=== PATIENT | female | born 1970 | race Caucasian/White ===

== ENCOUNTER 2019-12-14 10:44 | Emergency (ER) | payer OTHER, SELFPAY ==
--- NOTE | ~2019-12-14 | XR_ITS ---
EXAMINATION: XR lumbar spine min 4V EXAM DATE: 12/14/2019 11:30 INDICATION: No known recent injury provided at this time. Pain of the low back. Symptoms 3 weeks. TECHNIQUE: Lumber spine frontal, lateral, bilateral oblique projections. Coned down frontal and lat eral L5-S1 lumbar projections for interpretation. There is no prior study for comparison. FINDINGS: The vertebral bodies are aligned in the AP dimension. Vertebral body and disc heights are w ell-maintained. Mild lumbar facet arthropathy. No endplate erosive change. Sacrum, sacroiliac joints, sacral arcuate lines are intact. Paraspinal soft tissue is unremarkable. There is IUD projecting ove r the central aspect of the pelvis. IMPRESSION: Mild lumbar facet arthropathy. No acute findings. Reviewed, dictated and finalized at location B.
[2019-12-14 11:06] VITALS: BP 138/85; PULSE 96; RESP 18; TEMP 36.8; O2SAT 100
[2019-12-14] MEDS: KETOROLAC (*BKC) 60 MG/2 ML VIAL IM (11:18)
[2019-12-14 11:29] LABS: Add Urine Microscopic? YES; Appearance Urine Clear (Clear); Bilirubin Urine Negative (Negative); Blood Urine 1+ (Negative); Color Urine Colorless (Yellow); Glucose Urine UA Negative (Negative); Ketones Urine Negative (Negative); Leukocyte Esterase Ur Negative LEU/UL (Negative); Nitrate Urine Negative (Negative); Protein Urine Negative (Negative); Specific Grav Ur 1.006 (1.001-1.035); Squamous Epithelial Cell Urine Occasional /hpf (Few); Urobilinogen Urine Negative mg/dL (<2.0); WBC Urine 0-3 /hpf
--- NOTE | 2019-12-14 11:39 | ED.ABDPAIN ---
HPI - Abdominal Pain General Chief Complaint: Back Pain/Injury Stated Complaint: Back pain Time Seen by Provider: 12/14/19 10:48 Source: patient Mode of arrival: ambulatory Limitations: no limitations History of Present Illness HPI narrative: Patient is a 49-year-old female who presents with 3 weeks duration of low back pain noting that she had done some [employer] and then woke the next day with back pain noting aching pain worse with movement and activity that radiates into the bilateral buttocks patient denies other injury or trauma or similar occurrence went to an urgent care had taken a Medrol Dosepak and was taking muscle relaxers with minimal improvement Related Data Allergies Allergy/AdvReac Type Severity Reaction Status Date / Time levofloxacin Allergy Unknown Unknown Verified 12/14/19 11:12 Review of Systems Review of Systems: All systems reviewed & are unremarkable except as noted in HPI and below PMFSH Family History Family History (Updated 07/07/16 @ 10:20 by DOCTOR UNKNOWN) Mother Family history of mental disorder Hypertension Grandparent Hypertension Cerebrovascular accident Social History Social History Smoking status: Never smoker Alcohol intake: never Gender identity (if verbalized by the patient): Female Exam Narrative: Exam Narrative: GENERAL: Well-appearing, well-nourished, and in no acute distress. HEAD: Normocephalic, atraumatic. EYES: PERRLA and EOMI. ENT: Nares clear, no rhinorrhea or epistaxis. Mucous membranes moist. CHEST: Clear to auscultation. No respiratory distress. No wheezes rales or rhonchi HEART: Regular rate and rhythm. No murmur heard. EXTREMITIES: Normal range of motion. No edema. Midline lumbar tenderness no deformities noted SKIN: Warm, dry, no rash. NEURO: No focal deficits. Alert and oriented x3. Cranial nerves II through XII grossly intact. Normal speech and gait PSYCH: Normal mood and affect. Course Course Emergency Course: Patient in the room in no distress aware of case findings treatment plan and diagnosis agreed to follow-up as directed Vital Signs Vital signs: Vital Signs Temperature 98.2 F 12/14/19 11:06 Pulse Rate 96 12/14/19 11:06 Respiratory Rate 18 12/14/19 11:06 Blood Pressure 138/85 12/14/19 11:06 Pulse Oximetry 100 12/14/19 11:06 Temperature 98.2 F 12/14/19 11:06 Pulse Rate 96 12/14/19 11:06 Respiratory Rate 18 12/14/19 11:06 Blood Pressure 138/85 12/14/19 11:06 Pulse Oximetry 100 12/14/19 11:06 MDM - Abdominal Pain MDM Narrative Medical decision making narrative: Patients pain is positional in nature and localized to back without signs of cord compression or cauda equina based on neurological exam, skeletal exam and history. No fever or other significant factors to suggest osteomyelitis or spinal epidural abscess. No symptoms or signs to suggest pain is referred from abdominal or / cardiopulmonary sources. No pulsatile masses noted on exam. Patient ambulates with steady gait and is stable for outpatient management given case findings. Lab Data Labs: Lab Results 12/14/19 Range/Units 11:19 Urine Color Colorless (Yellow) Urine Appearance Clear (Clear) Urine pH 6.0 (5.0-9.0) Ur Specific [place] 1.006 (1.001-1.035) Urine Protein Negative (Negative) mg/dL Urine Glucose (UA) Negative (Negative) mg/dL Urine Ketones Negative (Negative) mg/dL Ur Blood (Man) 1+ H (Negative) Urine Nitrate Negative (Negative) Urine Bilirubin Negative (Negative) Urine Urobilinogen Negative (<2.0) mg/dL Leukocyte Esterase Rfl Negative (Negative) MELVIN/UL Urine WBC 0-3 /hpf Ur Squamous Epith Cells Occasional (Few) /hpf Imaging Data Radiologist's impression: ITS Impressions Lumbar Spine X-Ray 12/14/19 11:34 IMPRESSION: Mild lumbar facet arthropathy. No acute findings. Discharge Plan Disch
== END 2019-12-14 12:13 | disposition home or self-care (01) ==
PROVIDERS: Emergency Medicine Emergency Medical Services; Emergency Provider Emergency Medicine; PCP Family Medicine
DX: M54.5 Low back pain (principal)
CPT/HCPCS: 72110; 81001; 96372; 99283; J1885

== ENCOUNTER 2019-12-31 08:27 | Emergency (ER) | payer OTHER, SELFPAY ==
[2019-12-31 08:29] VITALS: BP 136/92; PULSE 104; RESP 18; TEMP 36.3; O2SAT 99
[2019-12-31] MEDS: MORPHINE SULFATE 4 MG/ML INJ IV PUSH (09:15)
[2019-12-31] MEDS: KETOROLAC 30 MG/ML VIAL (*BKC) IV PUSH (09:15)
--- NOTE | 2019-12-31 09:19 | ED.BACK ---
HPI - Back Pain/Injury General Chief Complaint: Back Pain/Injury Stated Complaint: Back Pain Time Seen by Provider: 12/31/19 08:36 History of Present Illness HPI Narrative: Patient is a 49-year-old female who presents ER with back pain and lower extremity burning. Patient reports several weeks ago she began having pain in her mid low back. She performed physical therapy without improvement. She been having sensation of having a leg where it was not and she felt like she was dragging around. She had no foot drop but reports difficulty with dorsiflexion of the right foot. Her PCP has been giving her cyclobenzaprine and ordered an outpatient MRI which did show some disc issues at L5/S1. Patient is going to be referred to pain management for further intervention. Patient reports yesterday she was lifting some light laundry into the dryer and was bending at the waist when she had sudden onset pain from turning. The pain is 10/10 and continues to send discomfort radiating down her right leg. She also reports she started having muscle cramps in her right leg. She is taking Tylenol in addition to her cyclobenzaprine. Related Data Allergies Allergy/AdvReac Type Severity Reaction Status Date / Time levofloxacin Allergy Unknown Unknown Verified 12/31/19 08:33 Review of Systems Constitutional: Constitutional: Denies chills, Denies fever(s) and Denies weakness Musculoskeletal: Musculoskeletal: Reports back pain and Reports muscle cramps Neurologic: Reports focal weakness and Reports numbness PMFSH Past Medical History Medical History (Updated 12/31/19 @ 09:57 by Tavo Beltran MD) History of pulmonary embolism Surgical History Surgical History No pertinent past surgical history Social History Social History Smoking status: Never smoker Alcohol intake: never Gender identity (if verbalized by the patient): Female Exam Narrative: Exam Narrative: GENERAL: Uncomfortable-appearing, lying on left side, well-nourished. HEAD: Normocephalic, atraumatic. EXTREMITIES: Normal range of motion. No edema. Back: No midline tenderness of thoracic or lumbar spine. There is significant tenderness over the right SI and mid gluteal region that sends pain down her leg. No reproducible tenderness on the left side. NEURO: Sensation intact in lower extremities despite sensation of numbness and burning. Alert and oriented x3. PSYCH: Normal mood and affect. Course Course Emergency Course: Patient reports she feels much more comfortable after morphine and Toradol. Discharge home with naproxen and [place]. Vital Signs Vital signs: Vital Signs Temperature 97.3 F L 12/31/19 08:29 Pulse Rate 104 H 12/31/19 08:29 Respiratory Rate 18 12/31/19 08:29 Blood Pressure 136/92 H 12/31/19 08:29 Pulse Oximetry 99 12/31/19 08:29 Temperature 97.3 F L 12/31/19 08:29 Pulse Rate 104 H 12/31/19 08:29 Respiratory Rate 18 12/31/19 08:29 Blood Pressure 136/92 H 12/31/19 08:29 Pulse Oximetry 99 12/31/19 08:29 Discharge Plan Discharge Clinical Impression: Sciatica Patient Disposition: Home, Self-Care Condition: Stable Instructions: Sciatica (ED) Additional Instructions: Return to the ER if you have increased pain in your back, you develop lower extremity weakness/numbness/paralysis, you have numbness or tingling in your private parts, or you are unable to control your ability to urinate/stool. Prescriptions: New hydrocodone-acetaminophen 5-325 mg tablet 1 tablet PO Q6H PRN (Reason: pain) Qty: 20 RF: 0 naproxen 500 mg tablet 500 mg PO BID Qty: 20 RF: 0 No Action methylprednisolone [Medrol (Tarik)] 4 mg tablets,dose pack See Rx Instructions PO PER PKG DIR Qty: 21 RF: 0 famotidine [Pepcid] 20 mg tablet 20 mg PO BID Qty: 7 RF: 0 cyclobenzaprine 10 mg tablet 10 mg PO TID
[2019-12-31 10:08] VITALS: BP 128/75; PULSE 75; RESP 18; O2SAT 100
== END 2019-12-31 10:13 | disposition home or self-care (01) ==
PROVIDERS: Emergency Provider Emergency Medicine; PCP Family Medicine
DX: M54.41 Lumbago with sciatica, right side (principal); Z86.711 Personal history of pulmonary embolism
CPT/HCPCS: 96374; 96375; 99284; J1885; J2270

== ENCOUNTER 2020-12-17 09:55 | Outpatient (CLI) | payer OTHER, SELFPAY ==
--- NOTE | 2020-12-17 11:30 | NEURO_ITS ---
Impression: # Complains of numbness of feet. # Normal nerve conduction study including lateral planter nerves. # No evidence of Tarsal Tunnel Syndrome. # Normal needle/EMG exam. Nerve Conduction Studies Anti Sensory Summary Table Stim Site NR Peak (ms) P-T Amp (?V) Site1 Site2 Delta-P (ms) Dist (cm) Terry (m/s) Left Sup Fibular Anti Sensory (Ant Lat Mall) 14 cm 2.9 16.3 14 cm Ant Lat Mall 2.9 16.0 55 Right Sup Fibular Anti Sensory (Ant Lat Mall) 14 cm 3.1 17.2 14 cm Ant Lat Mall 3.1 16.0 52 Left Sural Anti Sensory (Lat Mall) Calf 2.9 23.1 Calf Lat Mall 2.9 16.0 55 Right Sural Anti Sensory (Lat Mall) Calf 3.0 13.3 Calf Lat Mall 3.0 16.0 53 Motor Summary Table Stim Site NR Onset (ms) O-P Amp (mV) Site1 Site2 Delta-0 (ms) Dist (cm) Terry (m/s) Left Lateral Plantar Motor (ADM) Med Mall 4.1 1.5 Right Lateral Plantar Motor (ADM) Med Mall 4.1 3.0 Left Peroneal Motor (Vastus Med) Ankle 3.5 2.0 Popit Ankle 7.4 38.0 51 Popit 10.9 1.1 Right Peroneal Motor (Vastus Med) Ankle 3.6 2.6 Popit Ankle 7.0 38.0 54 Popit 10.6 2.3 Left Tibial Motor (Abd Brenner Brev) Ankle 3.8 4.3 Knee Ankle 7.0 40.0 57 Knee 10.8 4.1 Right Tibial Motor (Abd Brenner Brev) Ankle 3.5 5.8 Knee Ankle 8.2 41.0 50 Knee 11.7 3.8 F Wave Studies NR F-Lat (ms) L-R F-Lat (ms) Left Peroneal (Mrkrs) (EDB) 48.52 0.70 Right Peroneal (Mrkrs) (EDB) 49.22 0.70 Left Tibial (Mrkrs) (Abd Hallucis) 49.02 0.05 Right Tibial (Mrkrs) (Abd Hallucis) 49.07 0.05 EMG Side Muscle Nerve Root Ins Act Fibs Amp Dur Recrt Comment Right AntTibialis Dp Br Fibular L4-5 Nml Nml Nml Nml Nml Right Gastroc Tibial S1-2 Nml Nml Nml Nml Nml Right Fibularis Long Sup Br Fibular L5-S1 Nml Nml Nml Nml Nml Right Flex Dig Long Tibial L5-S2 Nml Nml Nml Nml Nml Right Ext Dig Brev Dp Br Fibular L5, S1 Nml Nml Nml Nml Nml Left AntTibialis Dp Br Fibular L4-5 Nml Nml Nml Nml Nml Left Gastroc Tibial S1-2 Nml Nml Nml Nml Nml Left Fibularis Long Sup Br Fibular L5-S1 Nml Nml Nml Nml Nml Left Flex Dig Long Tibial L5-S2 Nml Nml Nml Nml Nml Left Ext Dig Brev Dp Br Fibular L5, S1 Nml Nml Nml Nml Nml Right QuadratusFem QuadFemoris L4-5, S1 Nml Nml Nml Nml Nml Left QuadratusFem QuadFemoris L4-5, S1 Nml Nml Nml Nml Nml MTDD
== END 2020-12-17 09:56 | disposition home or self-care (01) ==
PROVIDERS: PCP Physician Assistant; Visit Provider Nurse Practitioner Family
DX: G62.9 Polyneuropathy, unspecified (principal)
CPT/HCPCS: 95886; 95911